=== PATIENT | female | born 1995 | race Caucasian/White ===

== ENCOUNTER 2017-11-18 21:34 | Emergency (ER) | payer BC ==
[~2017-11-18] VITALS: Ht 154.9 cm; Wt 54.0 kg
[2017-11-18 21:34] VITALS: BP_SYST 125
[~2017-11-18 21:34] MED LIST: Proair; [UNRECOGNIZED DRUG - OTHER] PO
[2017-11-18 22:12] LABS: BASOPHILS # (AUTO) 0.1 K/uL (0.0-0.2); BASOPHILS % (AUTO) 1.2 % (0.0-2.0); EOSINOPHILS # (AUTO) 0.1 K/uL (0.0-0.4); EOSINOPHILS % (AUTO) 1.4 % (0.0-4.0); HEMATOCRIT 37.3 % (36-48); HEMOGLOBIN 12.8 g/dL (12.0-16.0); LYMPHOCYTES # (AUTO) 2.6 K/uL (1.0-5.5); LYMPHOCYTES % (AUTO) 26.9 % (20.5-51.5); MEAN CORPUSCULAR HEMOGLOBIN 32 pg (27-31); MEAN CORPUSCULAR HGB CONC 34 % (32-36); MEAN CORPUSCULAR VOLUME 92 fL (79.0-98.0); MONOCYTES # (AUTO) 0.8 K/uL (0.0-1.0); MONOCYTES % (AUTO) 7.9 % (1.7-9.3); NEUTROPHILS % (AUTO) 62.6 % (40.0-70.0); PLATELET COUNT (AUTO) 239 K/uL (130-430); RED BLOOD CELL COUNT(AUTO) 4.06 MIL/uL (4.2-6.2); RED CELL DISTRIBUTION WIDTH 12.1 % (9.0-15.0); WHITE BLOOD COUNT (AUTO) 9.6 K/uL (4.8-10.8)
[2017-11-18 23:40] VITALS: BP_SYST 103
== END 2017-11-18 23:40 | disposition home or self-care (01) ==
LOC: SED 21:34
DX: O20.0 Threatened abortion (principal); O99.511 Diseases of the respiratory system complicating pregnancy, first trimester; J45.909 Unspecified asthma, uncomplicated; Z3A.01 Less than 8 weeks gestation of pregnancy; R03.0 Elevated blood-pressure reading, without diagnosis of hypertension
CPT/HCPCS: 36415; 76805-TC; 84702-TC; 85025; 86900; 86901; 99285

== ENCOUNTER 2018-07-11 07:30 | Inpatient (IN) | payer BC, MEDICAID ==
[~2018-07-11] VITALS: Ht 154.9 cm; Wt 68.5 kg
[2018-07-11] MEDS ORDERED: LR 1,000 ML IV ONE (08:00)
[2018-07-11] MEDS ORDERED: NALBUPHINE HCL 10 MG/ML AMP IVP PRN ×2 (08:00→16:15)
[2018-07-11] MEDS: LR 1,000 ML IV SCH ×2 (08:10→11:36)
[2018-07-11 08:27] LABS: BASOPHILS # (AUTO) 0.1 K/uL (0.0-0.2); BASOPHILS % (AUTO) 0.6 % (0.0-2.0); EOSINOPHILS # (AUTO) 0.1 K/uL (0.0-0.4); EOSINOPHILS % (AUTO) 0.5 % (0.0-4.0); HEMATOCRIT 36.2 % (36-48); HEMOGLOBIN 12.3 g/dL (12.0-16.0); LYMPHOCYTES # (AUTO) 1.7 K/uL (1.0-5.5); LYMPHOCYTES % (AUTO) 11.6 % (20.5-51.5); MEAN CORPUSCULAR HEMOGLOBIN 33 pg (27-31); MEAN CORPUSCULAR HGB CONC 34 % (32-36); MEAN CORPUSCULAR VOLUME 96 fL (79.0-98.0); MONOCYTES % (AUTO) 6.9 % (1.7-9.3); NEUTROPHILS # (AUTO) 11.8 K/uL (1.8-7.7); NEUTROPHILS % (AUTO) 80.4 % (40.0-70.0); PLATELET COUNT (AUTO) 196 K/uL (130-430); RED BLOOD CELL COUNT(AUTO) 3.75 MIL/uL (4.2-6.2); RED CELL DISTRIBUTION WIDTH 12.3 % (9.0-15.0); WHITE BLOOD COUNT (AUTO) 14.7 K/uL (4.8-10.8)
[2018-07-11] MEDS ORDERED: fentaNYL CITRATE/PF 100 MCG/2 ML AMP ONE ×2 (08:35→17:34)
[2018-07-11] MEDS ORDERED: FENT2mCg/mL-ROPIVA0.2%/NS EPID 150 ML EP SCH (08:35)
[2018-07-11] MEDS ORDERED: ROPIVACAINE 0.2% 100 ML ONE (08:36)
[2018-07-11] MEDS ORDERED: ePHEDrine sulfate 50 MG/ML VIAL IVP ONE (09:34)
[2018-07-11] MEDS ORDERED: ePHEDrine sulfate 50 MG/ML VIAL ONE (09:34)
[2018-07-11] MEDS: OXYTOCIN/0.9 % SODIUM CHLORIDE 1,000 ML IV SCH ×2 (10:00→18:05)
[2018-07-11 11:13] VITALS: BP_SYST 120
[2018-07-11] MEDS ORDERED: ACETAMINOPHEN 325 MG TABLET PO PRN ×2 (13:50→14:00)
[2018-07-11] MEDS ORDERED: ACETAMINOPHEN 325 MG TABLET ONE (13:57)
[2018-07-11] MEDS ORDERED: CLINDAMYCIN 900 MG in D5W 100 ML IV ONE (14:45)
[2018-07-11] MEDS ORDERED: AMPICILLIN SODIUM 2 GM in NS 100 ML IV ONE (14:45)
[2018-07-11] MEDS ORDERED: AMPICILLIN SODIUM 2 GM VIAL ONE (14:49)
[2018-07-11] MEDS ORDERED: CEFAZOLIN 2 GM IVPB PREMIX 0 ML IV ONE (15:43)
[2018-07-11] MEDS ORDERED: KETOROLAC TROMETHAMINE 60 MG/2 ML VIAL IM PRN (16:15)
[2018-07-11] MEDS ORDERED: fentaNYL CITRATE/PF 100 MCG/2 ML AMP IVP PRN ×2 (16:15)
[2018-07-11] MEDS ORDERED: DIPHENHYDRAMINE INJ 50 MG/ML VIAL IVP PRN (16:15)
[2018-07-11] MEDS ORDERED: MORPHINE SULFATE 10MG/10ML PF AMP SP SCH (16:15)
[2018-07-11] MEDS ORDERED: NALOXONE HCL 0.4 MG/ML AMP (NARCAN) IVP PRN ×2 (16:15)
[2018-07-11] MEDS ORDERED: KETOROLAC TROMETHAMINE 30 MG VIAL IVP PRN ×2 (16:15→23:15)
[2018-07-11] MEDS ORDERED: ONDANSETRON HCL 4 MG/2 ML VIAL IVP PRN (16:15)
[2018-07-11 17:00] VITALS: BP_SYST 111
[2018-07-11] MEDS ORDERED: OXYTOCIN/0.9 % SODIUM CHLORIDE 1,000 ML IV ONE (18:05)
[2018-07-11] MEDS ORDERED: CLINDAMYCIN 900 MG in D5W 100 ML IV SCH (22:00)
[2018-07-11] MEDS ORDERED: MEPERIDINE HCL/PF 25 MG/ML DISP.SYRIN IVP PRN (23:15)
[2018-07-12] MEDS ORDERED: IBUPROFEN 600 MG TABLET PO ONE (08:45)
[2018-07-12] MEDS: LR 1,000 ML IV SCH (16:36)
[2018-07-12] MEDS: IBUPROFEN 600 MG TABLET PO SCH (18:03)
[2018-07-13] MEDS: IBUPROFEN 600 MG TABLET PO SCH ×2 (01:30→06:25)
[2018-07-13] MEDS ORDERED: CLINDAMYCIN PHOSPHATE 900 mg/50mL D5W IV ONE (15:30)
[2018-07-13] MEDS ORDERED: WATER FOR IRRIGATION,STERILE 1,000 ML IRRIG.SOLN IR ONE (15:30)
[2018-07-13] MEDS ORDERED: BUPIVACAINE /PF 0.75% 10 ML VIAL INJ ONE (15:30)
[2018-07-13] MEDS ORDERED: LR 500 ML IV.SOLN IV ONE (15:30)
[2018-07-13] MEDS ORDERED: METHYLERGONOVINE MALEATE 0.2 MG/ML AMP IM ONE (15:30)
== END 2018-07-13 09:15 | disposition home or self-care (01) | DRG 786 ==
LOC: SPU 07:30
PROVIDERS: ADMIT Obstetrics & Gynecology; ATTEND Obstetrics & Gynecology
PROC: 10D00Z1 Extraction of Products of Conception, Low, Open Approach (ICD-10-PCS; principal; 2018-07-11 15:30)
DX: O62.0 Primary inadequate contractions (principal); O41.1230 Chorioamnionitis, third trimester, not applicable or unspecified; O76 Abnormality in fetal heart rate and rhythm complicating labor and delivery; Z37.0 Single live birth; Z3A.39 39 weeks gestation of pregnancy; O89.4 Spinal and epidural anesthesia-induced headache during the puerperium
CPT/HCPCS: 36415; 85025; 86592; 86886; 86900; 86901; J0290; J0690; J2175; J2210; J2405; J2590; J2795; J3010; J3490; J7060; J7120

== ENCOUNTER 2018-07-16 10:35 | Emergency (ER) | payer BC, MEDICAID ==
[~2018-07-16] VITALS: Ht 154.9 cm; Wt 54.4 kg
[2018-07-16 10:35] VITALS: BP_SYST 116
[2018-07-16] MEDS ORDERED: DIPHENHYDRAMINE INJ 50 MG/ML VIAL IVP ONE (11:15)
[2018-07-16] MEDS ORDERED: NACL 0.9% 1,000 ML IV ONE (11:15)
[2018-07-16] MEDS ORDERED: MORPHINE 4 MG/ML INJ. SYRINGE IVP ONE (11:15)
[2018-07-16 13:24] VITALS: BP_SYST 107
== END 2018-07-16 13:24 | disposition home or self-care (01) ==
LOC: SED 10:35
DX: R51 Headache (principal); J45.909 Unspecified asthma, uncomplicated
CPT/HCPCS: 96374; 96375; 99283; J1200; J2270; J7030